=== PATIENT | male | born 1990 | race Caucasian/White ===

== ENCOUNTER 2019-01-29 11:22 | Inpatient (IN) ==
[2019-01-29] MEDS ORDERED: 0.9 % Sodium Chloride 1,000 ML IVC ONE ×2 (11:46→12:55)
[2019-01-29] MEDS ORDERED: *HR* LORazepam 2 MG/ML VIAL IVP ONE (11:54)
--- NOTE | 2019-01-29 11:56 | Emergency Department Note ---
Disposition Clinical Impression: Palpitations, Elevated troponin Disposition: Admitted As Inpatient Condition: Fair Referrals: NONE,PCP [Primary Care Provider] - Forms: ED Satisfaction Letter Time of Disposition: 13:25 General Adult HPI - General Chief complaint: ED Arrhythmia/Palpitations Stated complaint: CP, palpitations Time Seen by Provider: 01/29/19 11:44 Source: patient Limitations: no limitations Nursing Notes Reviewed: Yes Vital Signs Reviewed: Yes - History of Present Illness HPI Narrative: The patient presented emergency department with chief complaint of palpitations feeling like his heart is racing and feeling dizzy like he might pass out. Patient states that he was at work, he has had no food today but was drinking water he then took a 5 hour energy drink, and soon thereafter started feeling palpitations like his heart was racing and feeling intermittently lightheaded. He states it felt like his heart was pounding very quickly and he states that it made him feel very jittery and anxious as well. Patient states he has had this happen one time in the past, he reports that 3 months ago he was at [facility] wore a Holter monitor for 3 days had an echocardiogram and a tilt table test that was all normal. The patient states that he has had no recent fevers chills cough sputum production. No exertional symptoms. No leg pain or leg swelling no recent travels or immobilization no family history of young people with heart disease, no history of blood clots. He denies recent black or bloody stool denies headache neck pain jaw pain. Denies neck pain or neck stiffness. The patient denies any urinary changes or any other concerns. He does smoke cigarettes, drinks occasionally denies any other drug use. Pain Scale: 8 - Related Data Home Medications Medication Instructions Recorded Confirmed clonazePAM [Klonopin] 0.5 mg PO BID PRN 01/02/18 01/29/19 Allergies Allergy/AdvReac Type Severity Reaction Status Date / Time No Known Allergies Allergy Verified 01/29/19 11:31 All systems ED: reviewed and negative except as stated. Review of Systems: As Per HPI Past Medical History - Past Medical History Medical history: Reports: no medical history Psychiatric history: Reports: no psych history - Social History Smoking Status: Current every day smoker Smokeless Tobacco Status: No Alcohol use: Reports: occasionally Drug use: Reports: opiates, marijuana, other Physical Exam - General Limitations: no limitations General appearance: alert, in no apparent distress - Head Head exam: atraumatic, normocephalic - Eye Eye exam: Present: normal appearance, PERRL - ENT ENT exam: normal exam, normal oropharynx - Neck Neck exam: Present: normal inspection, full ROM - Chest Chest inspection: Present: normal inspection, symmetric chest wall rise - Respiratory Respiratory exam: Present: normal lung sounds bilaterally. Absent: respiratory distress - Cardiovascular Cardiovascular exam: Present: normal rhythm, tachycardia (Tachycardic on the monitor heart rate of 115, there is ectopy noted, with occasional PACs occasional PVCs on the monitor. No runs of abnormal beats noted on the monitor), normal heart sounds - Abdominal Exam Abdominal exam: Present: soft, Non-Tender - Extremities Exam Extremities exam: Present: normal inspection, full ROM, normal capillary refill. Absent: tenderness, pedal edema - Expanded Lower Extremity Exam Neurovascular/Tendon exam: Present: normal capillary refill - Back Exam Back exam: Present: normal inspection, full ROM - Neurological Exam Neurological exam: Present: alert, oriented X3, CN II-XII intact, reflexes normal. Absent: motor sensory deficit - Psychiatric Psychiatric exam: Present: normal affect, anxious - Skin Skin exam: Present: warm, dry, intact, normal color. Absent: rash, cyanosis Course Vital Signs Temperature 98.1 F 01/29/19 11:28 Pulse Rate 124 01/29/19 11:28 Respiratory Rate 16 01/29/19 11:28 Blood Pressure 128/67 01/29/19 11:28 O2 Sat by Pulse Oximetry 98 01/29/19 11:28 Temperature 98.1 F 01/29/19 11:28 Pulse Rate 77 01/29/19 14:00 Respiratory Rate 18 01/29/19 14:00 Blood Pressure 133/74 01/29/19 14:00 O2 Sat by Pulse Oximetry 100 01/29/19 14:00 Oxygen Delivery Oxygen Delivery Room Air Medical Decision Making - [facility] Narrative Medical decision making narrative: Patient had IV placed, he was given IV fluids, he appears anxious and is tachycardic after drinking a 5 hour energy, he was given 0.5 mg of IV Ativan. EKG as interpreted by myself demonstrated a borderline right bundle branch block pattern, when compared to prior EKG no significant change in this regard, however the heart rate is 145 appears to be sinus tachycardia with a P wave in front of every QRS complex, at the end of the EKG patient does have 2 ventricular escape beats in succession, no sustained ventricular abnormality. Basic laboratory studies were ordered. Chest x-ray was ordered. Chest x-ray as interpreted by radiology showed no acute findings. CBC was within acceptable limits. Urine drug screen was negative for any illicit substances. I contacted cardiology spoke with Dr. Valiente, who reviewed the patient's EKG with me, he states that this does not require admission to the hospital, he would encourage the patient to avoid taking 5 hour energy and caffeinated beverages, especially seeing as the patient has had recent echocardiogram tilt table test and Holter monitor, he states that there is no indication for admission to the hospital he reviewed the EKG with a heart rate of 145-2 beats of ventricular escape, states that this is not indicative of an NSVT, as it is only 2 beats and just represent ectopy. He would recommend a repeat Holter monitor as an outpatient through his primary care physician, or through cardiology at [facility] where he was already seen or he can be referred to his office, as long as all laboratory studies were within acceptable limits.. After fluids and Ativan, patient had resolution of his symptoms, resolution of his tachycardia heart rate is down to the 80s to 90s range, we will obtain a repeat EKG, Cardiac enzymes came back borderline at 0.06, For troponin He was given aspirin for this, he will be admitted to the hospital for observation. - Lab Data Result diagrams: 01/29/19 12:11 01/29/19 12:11 Lab Results 01/29/19 01/29/19 01/29/19 Range/Units 12:09 12:11 12:11 WBC 9.1 (4.3-11.1) K/mcL RBC 5.57 H (4.19-5.50) M/mcL Hgb 17.6 H (12.9-16.9) g/dL Hct 51.1 H (37.5-50.1) % MCV 91.7 (83.0-100.0) fL MCH 31.6 (28.0-33.3) pg MCHC 34.4 (31.6-35.5) g/dL RDW 13.3 (11.5-14.5) % Plt Count 202 (140-400) K/mcL MPV 9.8 (9.4-12.4) fL Immature Gran % 0.4 (0-4) % Seg Neutrophils % 79.5 % Lymphocytes % 13.3 % Monocytes % 6.3 % Eosinophils % 0.3 % Basophils % 0.2 % Neutrophils # 7.3 (1.6-8.9) K/mcL Lymphocytes # 1.2 (0.6-4.6) K/mcL Monocytes # 0.6 (0.0-1.3) K/mcL Eosinophils # 0.0 (0.0-0.6) K/mcL Basophils # 0.0 (0.0-0.2) K/mcL Sodium 139 (136-145) mEq/L Potassium 3.6 (3.5-5.1) mEq/L Chloride 104 (98-107) mEq/L Carbon Dioxide 20 L (23-29) mEq/L BUN 19 (6-20) mg/dL Creatinine 1.23 (0.70-1.30) mg/dL Est GFR ( Amer) > 60 (> 60) Est GFR (Non-Af Amer) > 60 (> 60) BUN/Creatinine Ratio 15 (6-26) Glucose 148 H (70-105) mg/dL Calculated Osmolality 293 (280-300) Calcium 9.6 (8.6-10.3) mg/dL Magnesium 1.7 (1.6-2.6) mg/dL Troponin I 0.06 H* (< 0.04) ng/mL Urine Opiates Screen Negative (Jtuzij=529) ng/mL Ur Barbiturates Screen Negative (Pbobmj=183) ng/mL Ur Phencyclidine Scrn Negative (Cutoff=25) ng/mL Ur Amphetamines Screen Negative (Rzvxlg=1089) ng/mL U Benzodiazepines Scrn Negative (Cslslx=127) ng/mL Urine Cocaine Screen Negative (Cutoff= 300) ng/mL U Marijuana (THC) Screen Negative (Cutoff = 50) ng/mL Ur Drug Screen Interp See Below
[2019-01-29 12:27] LABS: Basophils % 0.2 %; Eosinophils % 0.3 %; Hematocrit 51.1 % (37.5-50.1); Hemoglobin 17.6 g/dL (12.9-16.9); Immature Granulocytes % 0.4 % (0-4); Lymphocytes # 1.2 K/mcL (0.6-4.6); Lymphocytes % 13.3 %; Mean Corpuscular HGB Conc 34.4 g/dL (31.6-35.5); Mean Corpuscular Hemoglobin 31.6 pg (28.0-33.3); Mean Corpuscular Volume 91.7 fL (83.0-100.0); Mean Platelet Volume 9.8 fL (9.4-12.4); Monocytes # 0.6 K/mcL (0.0-1.3); Monocytes % 6.3 %; Neutrophils # 7.3 K/mcL (1.6-8.9); Platelet Count 202 K/mcL (140-400); Red Blood Count 5.57 M/mcL (4.19-5.50); Red Cell Distribution Width 13.3 % (11.5-14.5); Segmented Neutrophils % 79.5 %; White Blood Count 9.1 K/mcL (4.3-11.1)
[2019-01-29 12:42] LABS: Amphetamine Screen,Urine Negative ng/mL (Cutoff=1000); Barbiturate Screen,Urine Negative ng/mL (Cutoff=200); Benzodiazepines Screen,Urine Negative ng/mL (Cutoff=200); Cannabinoid Screen,Urine Negative ng/mL (Cutoff = 50); Cocaine Screen,Urine Negative ng/mL (Cutoff= 300); Opiate Screen,Urine Negative ng/mL (Cutoff=300); Phencyclidine Screen,Urine Negative ng/mL (Cutoff=25)
[2019-01-29 12:58] LABS: Troponin I 0.06 ng/mL (< 0.04)
[2019-01-29] MEDS ORDERED: Aspirin 325 MG TABLET PO ONE (12:59)
[2019-01-29 13:08] LABS: BUN/Creatinine Ratio 15 (6-26); Blood Urea Nitrogen 19 mg/dL (6-20); Calcium 9.6 mg/dL (8.6-10.3); Carbon Dioxide 20 mEq/L (23-29); Chloride 104 mEq/L (98-107); Glucose 148 mg/dL (70-105); Magnesium 1.7 mg/dL (1.6-2.6); Osmolality,Calculated 293 (280-300); Potassium 3.6 mEq/L (3.5-5.1); Sodium 139 mEq/L (136-145); eGFR For African Americans > 60 (> 60); eGFR For Non-African Americans > 60 (> 60)
--- NOTE | 2019-01-29 14:33 | Internal Med History&Physical ---
Date of Encounter: 01/30/19 Time of Encounter: 14:33 Internal Medicine - H&P: HPI History of present illness: Mr. Hope is a 28 year old male presented emergency department with chief complaint of palpitations she is admitted with dizziness and feeling as if he about the pass out. The patient stated that he had a 5 hours during this morning and went to work while work, while working outside he felt suddenly that his heart is racing and became dizzy. the patient stated that 3 months ago he had a similar episode after he consumed several servings of 5 hours drinks in the same day. He was evaluated and [facility] and wore a Holter monitor for 3 days had an echocardiogram and a tilt table test that was all normal. the patient denied chest pain, orthopnea, paroxysmal nocturnal dyspnea, progressive worsening of lower extremity edema, recent travel, history of blood clot. He w as evaluated by the ER staff and his laboratory that there was evidence for mildly elevated troponin so he was admitted for further evaluation and management. Past Med Surg Social Fam HX - Past Medical History Medical history: no medical history Additional medical history: pain med abuse Psychiatric history: no psych history - Social History Smoking Status: Current every day smoker Smokeless Tobacco Status: No Alcohol use: occasionally Drug use: opiates, marijuana, other - Family History Mother Hx Family Endocrine Disorder: Yes (DM) Father Hx Family Cardiac Disorders: Yes Internal Medicine - H&P: Meds No Known Home Drugs 01/29/19 [History] Allergy/AdvReac Type Severity Reaction Status Date / Time No Known Allergies Allergy Verified 01/29/19 20:11 All Systems PM: A 10-system review of systems was performed and is negative for pertinent findings except as documented above in the HPI. - Constitutional Vitals: Temp Pulse Resp BP Pulse Ox 98.1 F 77 18 133/74 100 01/29/19 11:28 01/29/19 14:00 01/29/19 14:00 01/29/19 14:00 01/29/19 14:00 General appearance: Present: A&O X 3 - Head Head exam: Present: atraumatic, normocephalic - Neck Neck exam general surgery: Present: supple, trachea midline. Absent: lymphadenopathy - Respiratory Respiratory exam: Present: CTAB. Absent: accessory muscle use, rales, rhonchi, wheezes - Cardiovascular Cardiovascular exam: Present: RRR, +S1, +S2. Absent: diastolic murmur, gallop, rubs, systolic murmur - GI/Abdominal GI/Abdominal exam: Present: normal bowel sounds, soft, no peritoneal signs. Absent: distended, tenderness - Extremities Exam Extremities exam: Present: warm, radial pulses palpable and symmetrical. Absent: calf tenderness, cyanotic, pedal edema Internal Med - H&P Results - Labs CBC & Chem 7: 01/30/19 00:52 01/30/19 00:52 Labs: Short CBC 01/29/19 Range/Units 12:11 WBC 9.1 (4.3-11.1) K/mcL Hgb 17.6 H (12.9-16.9) g/dL Hct 51.1 H (37.5-50.1) % Plt Count 202 (140-400) K/mcL Neutrophils # 7.3 (1.6-8.9) K/mcL BMP 01/29/19 12:11 Sodium 139 Potassium 3.6 Chloride 104 Carbon Dioxide 20 L BUN 19 Creatinine 1.23 Glucose 148 H Calcium 9.6 Cardiac Enzymes 01/29/19 Range/Units 12:11 Troponin I 0.06 H* (< 0.04) ng/mL - Impressions ITS Impressions Chest X-Ray 01/29/19 11:46 IMPRESSION: No acute cardiopulmonary process. D/ / Junior Colon MD / Junior Colon MD Interpreting Provider: Junior Colon MD - Assessment and Plan (1) Palpitations Current Visit: Yes Status: Acute Assessment and plan: We admit patient to telemetry unit for observation and monitoring, will repeat 2 D echo, trend cardiac enzymes. (2) Elevated troponin Current Visit: Yes Status: Acute Assessment and plan: We will place patient on telemetry, trend cardiac enzymes (3) DVT prophylaxis Current Visit: Yes Status: Acute Assessment and plan: The patient is ambulatory - Time Spent With Patient Total time spent is greater than 50% in coordination of care (as documented) at patient's floor/unit and/or counseling patient:
[2019-01-29] MEDS: Nicotine 14 MG PATCH.TD24 TD SCH (18:11)
[2019-01-29] MEDS ORDERED: Acetaminophen 325 MG TABLET PO PRN (18:26)
[2019-01-29] MEDS ORDERED: Ondansetron 4 MG/2 ML VIAL IVP PRN (18:26)
[2019-01-29] MEDS ORDERED: *HR* HYDROcodone/Acet 5/325 mg TABLET PO PRN (18:26)
[2019-01-29] MEDS ORDERED: Naloxone 0.4 MG/ML INJ IVP PRN (18:26)
[2019-01-29] MEDS: clonazePAM 0.5 MG TABLET PO PRN (22:20)
[2019-01-29] MEDS: 0.9 % Sodium Chloride 1,000 ML IVC SCH (22:22)
[2019-01-29] MEDS ORDERED: Perflutren Lipid Microsphere 1.3 ML in 0.9 % Sodium Chloride 8.7 ML IVP ONE (22:47)
[2019-01-30 01:57] LABS: Basophils % 0.2 %; Eosinophils # 0.1 K/mcL (0.0-0.6); Eosinophils % 0.7 %; Hematocrit 45.5 % (37.5-50.1); Immature Granulocytes % 0.2 % (0-4); Lymphocytes % 24.2 %; Mean Corpuscular HGB Conc 33.4 g/dL (31.6-35.5); Mean Corpuscular Volume 92.9 fL (83.0-100.0); Monocytes # 0.8 K/mcL (0.0-1.3); Monocytes % 9.1 %; Neutrophils # 5.5 K/mcL (1.6-8.9); Platelet Count 187 K/mcL (140-400); Red Cell Distribution Width 13.5 % (11.5-14.5); Segmented Neutrophils % 65.6 %; White Blood Count 8.4 K/mcL (4.3-11.1)
[2019-01-30 02:06] LABS: Alanine Aminotransferase 14 Units/L (7-52); Albumin/Globulin Ratio 1.9 (1.1-2.2); Alkaline Phosphatase 62 Units/L (34-104); Aspartate Amino Transferase 19 Units/L (13-39); BUN/Creatinine Ratio 13 (6-26); Bilirubin,Total 0.5 mg/dL (0.3-1.0); Blood Urea Nitrogen 14 mg/dL (6-20); Calcium 8.5 mg/dL (8.6-10.3); Carbon Dioxide 24 mEq/L (23-29); Chloride 107 mEq/L (98-107); Chol/HDL Ratio 2.5 (0-4.9); Cholesterol 114 mg/dL (< 200); Globulin 2.1 g/dL (2.4-3.5); Glucose 87 mg/dL (70-105); HDL Cholesterol 45 mg/dL (40-59); INR 1.1; LDL Cholesterol,Calculated 50 mg/dL (0-99); Osmolality,Calculated 286 (280-300); Phosphorous 3.1 mg/dL (2.7-4.5); Potassium 3.5 mEq/L (3.5-5.1); Prothrombin Time 12.2 Seconds (9.4-12.1); Sodium 138 mEq/L (136-145); Total Protein 6.1 g/dL (6.4-8.9); Triglycerides 96 mg/dL (< 150); eGFR For African Americans > 60 (> 60); eGFR For Non-African Americans > 60 (> 60)
[2019-01-30 02:08] LABS: Activated Partial Thrombo Time 31.1 Seconds (26.0-36.0)
[2019-01-30 02:11] LABS: Hemoglobin 15.2 g/dL (12.9-16.9)
[2019-01-30] MEDS ORDERED: *HR* Heparin 5,000 UNIT/ML VIAL IVP ONE (04:25)
[2019-01-30] MEDS ORDERED: *HR* Heparin 5,000 UNIT/ML VIAL IVP PRN ×2 (04:25)
--- NOTE | 2019-01-30 04:31 | Event Note ---
Date of Encounter: 01/30/19 Time of Encounter: 02:17 Alerted by patient's nurse NEVILLE Amos the patient's troponin was now 0.45, up from 0.25 and 0.06. Patient denies chest pain or shortness of breath, however patient was admitted with tachycardia, palpitations, and dizziness. Echocardiogram ordered and completed and awaiting read. Additional troponin ordered. Patient placed on heparin gtt. Consider Cardiology consult based on current increasing troponins and Echocardiogram results. Nurse instructed to continue monitoring the pt. very closely and alert me immediately of any adverse changes.
[2019-01-30] MEDS: Heparin 25,000 UNIT/250 ML D5W 25,000 UNIT/250 ML IV.SOLN IVC SCH (05:18)
[2019-01-30 06:38] LABS: Hematocrit 47.7 % (37.5-50.1); Hemoglobin 15.8 g/dL (12.9-16.9); Mean Corpuscular HGB Conc 33.1 g/dL (31.6-35.5); Mean Corpuscular Hemoglobin 31.3 pg (28.0-33.3); Mean Corpuscular Volume 94.6 fL (83.0-100.0); Platelet Count 190 K/mcL (140-400); Red Blood Count 5.04 M/mcL (4.19-5.50); Red Cell Distribution Width 13.5 % (11.5-14.5); White Blood Count 7.9 K/mcL (4.3-11.1)
[2019-01-30 06:46] LABS: Heparin anti-factor XA UFH 0.02 IU/mL (0.30-0.70); Prothrombin Time 11.7 Seconds (9.4-12.1)
[2019-01-30] MEDS: Nicotine 14 MG PATCH.TD24 TD SCH (09:20)
[2019-01-30] MEDS: clonazePAM 0.5 MG TABLET PO PRN ×2 (09:20→18:49)
[2019-01-30] MEDS: 0.9 % Sodium Chloride 1,000 ML IVC SCH ×2 (09:22→17:32)
--- NOTE | 2019-01-30 09:36 | Electrocardiograph Report ---
[place] [id number] Test Date: 2019-01-29 Pat Name: Efrain Hope Department: EXAM15 Room: 3B48 Gender: M Grant Specialist: : 1990 Requested By: Wm Kelly Order Number: [id number] Reading MD: Carlos Clarke Measurements Intervals [place] Rate: 113 P: 63 IA: 119 QRS: -22 QRSD: 109 T: 56 QT: 345 QTc: 473 Interpretive Statements Sinus tachycardia Borderline left axis deviation RSR' in V1 or V2, probably normal variant Electronically Signed On 01-30-2019 9:35:18 EDT by Carlos Clarke
--- NOTE | 2019-01-30 09:37 | Electrocardiograph Report ---
[address] [address] Test Date: 2019-01-29 Pat Name: Efrain Hope Department: 104 Room: 3B48 Gender: M Tobacco Classer: Gil : 1990 Requested By: Lobito Campbell Order Number: [id number] Reading MD: Carlos Clarke Measurements Intervals [place] Rate: 145 P: 65 [place]: 122 QRS: 4 QRSD: 93 T: 64 QT: 283 QTc: 366 Interpretive Statements SINUS TACHYCARDIA WITH OCCASIONAL VENTRICULAR PREMATURE COMPLEXES Incomplete right bundle branch block ABNORMAL RHYTHM ECG Electronically Signed On 01-30-2019 9:36:09 EDT by Carlos Clarke
--- NOTE | 2019-01-30 13:32 | Cardiology Consult Note ---
<Trenton Rodriguez - Last Filed: 01/30/19 15:04> Date of Encounter: 01/30/19 Time of Encounter: 13:30 Assessment and Plan (1) Tachycardia Current Visit: Yes Status: Acute Patient seen to have sinus tachycardia with HR up to 145 bpm. May be secondary to energy drinks. H/o tachycardia in the past. Patient should refrain from using energy drinks. Agree with IV hydration. (2) Elevated troponin Current Visit: Yes Status: Acute Troponin elevation up to 1.5 of unclear significance. Possible demand ischemia due to SVT. TTE Shows preserved EF and no WMA. Pt reported left arm pain. Cardiac risk factors include tobacco abuse. Continue trending troponin. Heparin gtt for 24-48 hours. Will discuss further ischemic evaluation with Dr. Clarke. Discussion w patient/family: The assessment and plan as outlined above was discussed with the patient and/or family members who expressed understanding and agreement. All questions were answered. Thank you for involving us in the care of your patient. Please call with any questions. History of Present Illness Consult date: 01/30/19 Requesting physician: Caryn Vazquez Consult reason: elevated troponin Chief complaint: Palpitations, left arm pain and tingling History of present illness: Mr. Hope is a 28 year old male with a past medical history significant for vitamin B-12 deficiency who presents with a complain of palpitations, left arm pain, and bilateral tingling in his hands. He states his symptoms started approximately 3 hours after drinking a five-hour energy drink. He reports similar symptoms in the past. His previously evaluated at the [facility] and underwent echocardiogram, Holter monitor, and tilt table test. No abnormal findings were found on work-up. He denies excessive use of energy drinks. He reports a history of drinking a lot of energy drinks. He quit drinking then secondary to increased palpitations and anxiety. EKG completed in the ED showed sinus tachycardia with a heart rate of 145 bpm and couplet PVC. Troponin also found to be elevated up to 1.37. Patient denies excessive alcohol or drug use. Past Med Surg Social Fam HX - Past Medical History Medical history: no medical history Additional medical history: pain med abuse Psychiatric history: no psych history - Past Surgical History Surgical History: no surgical history - Social History Smoking Status: Current every day smoker Packs per day: 1 Smokeless Tobacco Status: No Alcohol use: occasionally Drug use: opiates, marijuana, other - Family History Mother Hx Family Endocrine Disorder: Yes (DM) Father Hx Family Cardiac Disorders: Yes (60 yrs old) Medications and Allergies No Known Home Drugs 01/29/19 [History] Allergy/AdvReac Type Severity Reaction Status Date / Time No Known Allergies Allergy Verified 01/29/19 20:11 All Systems Review: The remainder of the systems were reviewed and are negative Physical Examination Vital Signs, Last 4 Hours Temp Pulse Resp BP Pulse Ox 01/30/19 11:58 98.8 F 79 14 100/66 98 General: Conversant, No Apparent Distress HEENT: Atraumatic, Normocephaly, Mucus Membranes Moist Neck: No JVD, Normal carotid pulses Cardiac: Reg Rate and Rhythm, Normal S1 and S2, No Murmur Lungs: Normal Breath Sounds, No Wheeze, Rales, Rhonchi Neuro: Alert and responsive, No focal deficits noted Abdomen: Soft, Non-Tender Skin: No rashes noted on visualized skin Musculoskeletal: No Chest Wall Tenderness Extremities: No Clubbing, No Cyanosis, No Edema, Normal Pulses Results 01/30/19 05:17 01/30/19 00:52 Lab Results 01/29/19 01/30/19 01/30/19 21:18 00:52 00:52 WBC 8.4 Hgb 15.2 D Hct 45.5 Plt Count 187 INR APTT Sodium Potassium Chloride Carbon Dioxide BUN Creatinine Glucose Calcium Magnesium Total Bilirubin AST ALT Alkaline Phosphatase Troponin I 0.25 H* 0.45 H* 01/30/19 01/30/19 01/30/19 00:52 00:52 05:17 WBC Hgb Hct Plt Count INR 1.1 APTT 31.1 Sodium 138 Potassium 3.5 Chloride 107 Carbon Dioxide 24 BUN 14 Creatinine 1.08 Glucose 87 Calcium 8.5 L Magnesium 2.0 Total Bilirubin 0.5 AST 19 ALT 14 Alkaline Phosphatase 62 Troponin I 1.37 H* 01/30/19 01/30/19 05:17 05:17 WBC 7.9 Hgb 15.8 Hct 47.7 Plt Count 190 INR 1.0 APTT Sodium Potassium Chloride Carbon Dioxide BUN Creatinine Glucose Calcium Magnesium Total Bilirubin AST ALT Alkaline Phosphatase Troponin I - Imaging and Cardiology Echo: report reviewed - EKG Interpretation EKG results cardiology: personally reviewed Consult Discharge Plan - Plan Referrals: NONE,PCP [Primary Care Provider] - <Carlos Clarke A - Last Filed: 01/31/19 14:26> Date of Encounter: 01/31/19 - Attending Attestation I have personally performed a face to face evaluation on this patient. I have reviewed and agree with the documented findings and care plan as documented by the SCHOOL CHILD CARE ATTENDANT. History and Exam by me shows: 71-year-old gentleman with history of opiate addiction (on therapy, but discontinued due to lack of access to express care) and tobacco abuse presented with SVT after taking energy drink, and found to have elevated troponin.. No known history of premature coronary artery disease in first-degree relative. AAOX3 in NAD at the bedside Hemodynamically stable Cardiopulmonary exam revealed S1, S2, no murmur; clear lungs Rhythm reviewed - sinus rhythm, no acute ST T changes Echo preserved EF, no significant valvular heart disease Impression/plan: Elevated troponin, possibly demand from SVTtrend troponin to peak. Continue IV heparin until troponin starts to come down. Urine toxicology negative for cocaine. Obtain HbA1c and fasting lipid profile. If troponin continue to uptrend, we will consider cardiac catheterization Carlos Marin MD FACC Assessment and Plan Discussion w patient/family: The assessment and plan as outlined above was discussed with the patient and/or family members who expressed understanding and agreement. All questions were answered. Thank you for involving us in the care of your patient. Please call with any questions. History of Present Illness History of present illness: Mr. Hope is a 28 year old male All Systems Review: The remainder of the systems were reviewed and are negative Physical Examination Vital Signs, Last 4 Hours Temp Pulse Resp BP Pulse Ox 01/31/19 11:44 98.4 F 89 16 121/77 96 Results 01/31/19 00:18 01/31/19 00:18 Lab Results 01/30/19 01/30/19 01/31/19 14:13 22:14 00:18 WBC 8.4 Hgb 15.5 Hct 46.8 Plt Count 184 Sodium Potassium Chloride Carbon Dioxide BUN Creatinine Glucose Calcium Troponin I 1.51 H* 2.30 H* TSH 1.030 01/31/19 01/31/19 01/31/19 00:18 04:13 10:19 WBC Hgb Hct Plt Count Sodium 137 Potassium 3.7 Chloride 106 Carbon Dioxide 23 BUN 17 Creatinine 1.12 Glucose 114 H Calcium 8.8 Troponin I Cancelled 2.73 H* 2.38 H* TSH
[2019-01-30 14:52] LABS: Troponin I 1.51 ng/mL (< 0.04)
[2019-01-30 15:45] LABS: Thyroid Stimulating Hormone 1.03 mcIU/mL (0.340-5.600)
--- NOTE | 2019-01-30 15:55 | Internal Med Progress Note ---
Hospitalist Progress Note - Encounter Date of Encounter: 01/30/19 Time of Encounter: 15:50 - Subjective Interval History: Mr. Hope is a 28 year old male with a known past medical history of former narcotic dependence, used to be on suboxone therapy up until Aug 2018, now he presented to emergency department with chief complaint of palpitations, anxiety attack and left hand numbness. He did mention as if he was about to pass out. patient stated that 3 months ago he had a similar episode after he consumed several servings of 5 hours drinks in the same day. He was evaluated and [facility] and wore a Holter monitor for 3 days had an echocardiogram and a tilt table test that was all normal. Patient did mention he still drinking 5 hour energy drinks, but cut down the quantity now - Exam Vitals: Temp Pulse Resp BP Pulse Ox 98.3 F 87 18 106/72 97 01/30/19 15:41 01/30/19 15:41 01/30/19 15:41 01/30/19 15:41 01/30/19 15:41 Exam: Gen: Alert, awake, Oriented to time,place and person Chest: Diminished breath sounds B/L, No wheezing, No crackles, No rales Heart: S1S2+ RRR No murmurs Abd: Soft, NT, BS +, No organomegaly Ext: No edema, pulses are palpable, No calf tenderness Neuro : No acute focal neuro deficits noticed Skin: No rash. - Assessment and Plan (1) DVT prophylaxis Current Visit: Yes Status: Acute (2) NSTEMI (non-ST elevated myocardial infarction) Current Visit: Yes Status: Acute Assessment and Plan: His elevated trop - multi factorial due to sinus tachycardia + Anxiety / Stress + Too much Caffeine with 5 hour energy drinks Trop are still trending high.. It peaked @ 1.52 now Cont trending on trop Reviewed 2 D Echo - LVEF 60-65%, Normal LV diastolic function cont heparin gtt for 48 hrs Card is on board appreciate Card recommendations (3) Sinus tachycardia Current Visit: Yes Status: Acute Assessment and Plan: resolved with IV hydration No need of BB If he develops tachycardia again.. consider Cardizem CD 120mg counseled to quit drinking 5 hour drinks (4) Narcotic dependence, in remission Current Visit: Yes Status: Acute (5) Palpitations Current Visit: Yes Status: Acute - Time Spent with Patient Total time spent is greater than 50% in coordination of care (as documented) at patient's floor/unit and/or counseling patient: Internal Medicine: Result - Labs CBC & Chem 7: 01/30/19 05:17 01/30/19 00:52 Labs: Short CBC 01/30/19 01/30/19 Range/Units 00:52 05:17 WBC 8.4 7.9 (4.3-11.1) K/mcL Hgb 15.2 D 15.8 (12.9-16.9) g/dL Hct 45.5 47.7 (37.5-50.1) % Plt Count 187 190 (140-400) K/mcL Neutrophils # 5.5 (1.6-8.9) K/mcL BMP 01/30/19 00:52 Sodium 138 Potassium 3.5 Chloride 107 Carbon Dioxide 24 BUN 14 Creatinine 1.08 Glucose 87 Calcium 8.5 L Cardiac Enzymes 01/29/19 01/30/19 01/30/19 Range/Units 21:18 00:52 05:17 Troponin I 0.25 H* 0.45 H* 1.37 H* (< 0.04) ng/mL 01/30/19 Range/Units 14:13 Troponin I 1.51 H* (< 0.04) ng/mL Liver Function 01/30/19 Range/Units 00:52 Total Bilirubin 0.5 (0.3-1.0) mg/dL AST 19 (13-39) Units/L ALT 14 (7-52) Units/L Alkaline Phosphatase 62 (34-104) Units/L Albumin 4.0 (3.5-5.7) g/dL - ABG Interpretation ABG results: PT/INR, D-dimer PT 11.7 Seconds (9.4-12.1) 01/30/19 05:17 - Impressions Impressions Echocardiogram 01/29/19 22:37 Impressions: LVEF 60-65%. Normal LV chamber size, wall thickness and function. Normal left ventricular diastolic function. Normal right ventricular structure and function. Unable to estimate RVSP due to lack of TR jet. No significant valvular dysfunction. Left Ventricular Wall Motion: Rest Echo Findings All wall segments showed normal motion. Findings: Study Quality * Technically adequate exam. ECG Findings * Normal sinus rhythm. Left Ventricle * LVEF 60-65%. * Normal LV chamber size, wall thickness and function. * Normal left ventricular diastolic function. Right Ventricle * Normal right ventricular structure and function. Left Atrium * Normal left atrial size. Right Atrium * Normal right atrial size. Interatrial Septum * Interatrial septum not well evaluated. Aortic Valve * Trileaflet aortic valve with normal function. * No aortic regurgitation. * No aortic stenosis. Mitral Valve * Normal mitral valve structure and function. * No mitral regurgitation. * No mitral stenosis. Tricuspid Valve * Normal tricuspid valve structure and function. * No tricuspid regurgitation. * Unable to estimate RVSP due to lack of TR jet. Pulmonic Valve * Normal pulmonic valve structure and function. * No pulmonic regurgitation. Aorta * Normally sized aortic root. Pericardium * The pericardium appears normal. IVC * Normal IVC dimensions and inspiratory collapse. Pulmonary Artery * Normal visualized portions of the main pulmonary artery. Consult Discharge Plan - Plan Referrals: NONE,PCP [Primary Care Provider] -
[2019-01-31 00:52] LABS: Hematocrit 46.8 % (37.5-50.1); Hemoglobin 15.5 g/dL (12.9-16.9); Mean Corpuscular HGB Conc 33.1 g/dL (31.6-35.5); Mean Corpuscular Hemoglobin 30.9 pg (28.0-33.3); Mean Corpuscular Volume 93.2 fL (83.0-100.0); Mean Platelet Volume 9.9 fL (9.4-12.4); Platelet Count 184 K/mcL (140-400); Red Blood Count 5.02 M/mcL (4.19-5.50); Red Cell Distribution Width 13.4 % (11.5-14.5); White Blood Count 8.4 K/mcL (4.3-11.1)
[2019-01-31 01:17] LABS: BUN/Creatinine Ratio 15 (6-26); Blood Urea Nitrogen 17 mg/dL (6-20); Calcium 8.8 mg/dL (8.6-10.3); Carbon Dioxide 23 mEq/L (23-29); Chloride 106 mEq/L (98-107); Glucose 114 mg/dL (70-105); Osmolality,Calculated 286 (280-300); Potassium 3.7 mEq/L (3.5-5.1); Sodium 137 mEq/L (136-145); eGFR For African Americans > 60 (> 60); eGFR For Non-African Americans > 60 (> 60)
[2019-01-31] MEDS: Heparin 25,000 UNIT/250 ML D5W 25,000 UNIT/250 ML IV.SOLN IVC SCH (03:57)
[2019-01-31] MEDS: 0.9 % Sodium Chloride 1,000 ML IVC SCH (03:58)
--- NOTE | 2019-01-31 06:19 | Event Note ---
Date of Encounter: 01/31/19 Time of Encounter: 05:23 Alerted by patient's nurse NEVILLE Amos that patient's troponin was now increased to 2.73, up from 2.30 on 01/30, up from 1.51 on 01/30, up from 0.06 on 01/29. Cardiology seems to attribute this to demand ischemia from SVT. Pt. continues to be on heparin gtt and continues to be asymptomatic. Pt. was seen previously at [facility] for similar symptoms approximately 3 months ago Holter monitor, echocardiogram, and tilt table test done with results all being normal. Nurse instructed to continue monitoring pt. very closely and alert me immediately of any new or adverse changes.
[2019-01-31] MEDS: clonazePAM 0.5 MG TABLET PO PRN ×2 (09:38→21:10)
[2019-01-31] MEDS: Nicotine 14 MG PATCH.TD24 TD SCH (09:38)
[2019-01-31 10:54] LABS: Estimated Average Glucose 114 mg/dl; Hemoglobin A1C 5.6 %
--- NOTE | 2019-01-31 12:06 | Cardiology Progress Note ---
Date of Encounter: 01/31/19 Time of Encounter: 11:00 Assessment and Plan (1) Elevated troponin Current Visit: Yes Status: Acute Troponin continues to uptrend, 2.73. Remains chest pain free. No ischemic ECG changes. Unclear significance. No further episodes of tachycardia noed. TTE Shows preserved EF and no WMA. Pt reported left arm pain prior to admission. Cardiac risk factors include tobacco abuse. A1C pending. Continue heparin gtt, add aspirin, statin, and BB. Discussed with Dr. Clarke, recommend C with possible PCI to r/o ischemic gabo ology. (2) Tachycardia Current Visit: Yes Status: Acute Patient seen to have sinus tachycardia with HR up to 145 bpm. May be secondary to energy drinks. H/o tachycardia in the past. Patient should refrain from using energy drinks. Agree with IV hydration. Discussion w patient/family: The assessment and plan as outlined above was discussed with the patient and/or family members who expressed understanding and agreement. All questions were answered. Thank you for involving us in the care of your patient. Please call with any questions. The patient will be discussed and reviewed with Dr. Clarke; changes to be made accordingly. Objective Vital Signs, Last 4 Hours Temp Pulse Resp BP Pulse Ox 01/31/19 11:44 98.4 F 89 16 121/77 96 Results 01/31/19 00:18 01/31/19 00:18 Lab Results 01/30/19 01/30/19 01/31/19 14:13 22:14 00:18 WBC 8.4 Hgb 15.5 Hct 46.8 Plt Count 184 Sodium Potassium Chloride Carbon Dioxide BUN Creatinine Glucose Calcium Troponin I 1.51 H* 2.30 H* TSH 1.030 01/31/19 01/31/19 01/31/19 00:18 04:13 10:19 WBC Hgb Hct Plt Count Sodium 137 Potassium 3.7 Chloride 106 Carbon Dioxide 23 BUN 17 Creatinine 1.12 Glucose 114 H Calcium 8.8 Troponin I Cancelled 2.73 H* 2.38 H* TSH Consult Discharge Plan - Plan Referrals: NONE,PCP [Primary Care Provider] -
--- NOTE | 2019-01-31 12:18 | Internal Med Progress Note ---
Hospitalist Progress Note - Encounter Date of Encounter: 01/31/19 Time of Encounter: 11:00 - Subjective Interval History: No acute events overnight. Denies any chest pain, palpitation, orthopnea, or leg swelling. No fever overnight - Exam Vitals: Temp Pulse Resp BP Pulse Ox 98.4 F 89 16 121/77 96 01/31/19 11:44 01/31/19 11:44 01/31/19 11:44 01/31/19 11:44 01/31/19 11:44 Exam: Gen: Alert, awake, Oriented to time,place and person Chest: Clear to auscultation bilaterally Heart: S1S2+ RRR No murmurs Abd: Soft, NT, BS +, No organomegaly Ext: No edema, pulses are palpable, No calf tenderness Neuro : No acute focal neuro deficits noticed - Assessment and Plan (1) Elevated troponin Current Visit: Yes Status: Acute Assessment and Plan: in the setting of sinus tachycardia continues to trend up to 2.73 this morning, no anginal symptoms Echocardiogram showed preserved EF and no wall motion abnormalities cardiology input appreciated, Aspirin, statin, beta sandra to be added and plan for [facility] currently on hep gtt, continue for 48-72 hours (2) Tachycardia Current Visit: Yes Status: Acute Assessment and Plan: Avoidance of caffeinated drinks emphasized bb added as above (3) Narcotic dependence, in remission Current Visit: Yes Status: Acute (4) DVT prophylaxis Current Visit: Yes Status: Acute Assessment and Plan: hep gtt - Time Spent with Patient Total time spent is greater than 50% in coordination of care (as documented) at patient's floor/unit and/or counseling patient: 25 - 35 minutes Plan of Care Discussed with: patient (discussed with cardiology) Internal Medicine: Result - Labs CBC & Chem 7: 01/31/19 00:18 01/31/19 00:18 Labs: Short CBC 01/31/19 Range/Units 00:18 WBC 8.4 (4.3-11.1) K/mcL Hgb 15.5 (12.9-16.9) g/dL Hct 46.8 (37.5-50.1) % Plt Count 184 (140-400) K/mcL BMP 01/31/19 00:18 Sodium 137 Potassium 3.7 Chloride 106 Carbon Dioxide 23 BUN 17 Creatinine 1.12 Glucose 114 H Calcium 8.8 Cardiac Enzymes 01/30/19 01/30/19 01/31/19 Range/Units 14:13 22:14 00:18 Troponin I 1.51 H* 2.30 H* Cancelled (< 0.04) ng/mL 01/31/19 01/31/19 Range/Units 04:13 10:19 Troponin I 2.73 H* 2.38 H* (< 0.04) ng/mL - ABG Interpretation ABG results: PT/INR, D-dimer PT 11.7 Seconds (9.4-12.1) 01/30/19 05:17 Consult Discharge Plan - Plan Referrals: NONE,PCP [Primary Care Provider] -
[2019-01-31] MEDS ORDERED: *HR* LORazepam 2 MG/ML VIAL IVP ONE (12:34)
[2019-01-31] MEDS: Aspirin 81 MG TAB.CHEW PO SCH (13:20)
[2019-02-01] MEDS: Heparin 25,000 UNIT/250 ML D5W 25,000 UNIT/250 ML IV.SOLN IVC SCH (06:22)
[2019-02-01] MEDS: clonazePAM 0.5 MG TABLET PO PRN ×2 (09:10→20:32)
[2019-02-01] MEDS: Aspirin 81 MG TAB.CHEW PO SCH (09:10)
--- NOTE | 2019-02-01 09:11 | Cardiology Progress Note ---
Date of Encounter: 02/01/19 Time of Encounter: 08:30 Assessment and Plan (1) Elevated troponin Current Visit: Yes Status: Acute Troponin continues to uptrend, 2.73. Remains chest pain free. No ischemic ECG changes. Unclear significance. Episode of ST yesterday afternoon around 5PM, patient reports "panic attack" TTE Shows preserved EF and no WMA. Pt reported left arm pain prior to admission. Cardiac risk factors include tobacco abuse. A1C pending. Continue heparin gtt, add aspirin, statin, and BB. Discussed with Dr. Clarke, recommend LHC with possible PCI to r/o ischemic etiology. NPO after MN (2) Tachycardia Current Visit: Yes Status: Acute Patient seen to have sinus tachycardia with HR up to 145 bpm. May be secondary to energy drinks. H/o tachycardia in the past. Patient should refrain from using energy drinks. Agree with IV hydration. Discussion w patient/family: The assessment and plan as outlined above was discussed with the patient and/or family members who expressed understanding and agreement. All questions were answered. Thank you for involving us in the care of your patient. Please call with any questions. The patient will be discussed and reviewed with Dr. Clarke; changes to be made accordingly. Subjective Principal diagnosis: NSTEMI Interval history: seen and examined. No complaints overnight. No chest pain reported. Objective Vital Signs, Last 4 Hours Temp Pulse Resp BP Pulse Ox 02/01/19 07:13 97.9 F 64 16 98/64 97 General: Conversant, No Apparent Distress HEENT: Atraumatic, Normocephaly, Mucus Membranes Moist Neck: No JVD, Normal carotid pulses Cardiac: Reg Rate and Rhythm, Normal S1 and S2, No Murmur Lungs: Normal Breath Sounds, No Wheeze, Rales, Rhonchi Neuro: Alert and responsive, No focal deficits noted Abdomen: Soft, Non-Tender Skin: No rashes noted on visualized skin Musculoskeletal: No Chest Wall Tenderness Extremities: No Clubbing, No Cyanosis, No Edema, Normal Pulses Results 01/31/19 00:18 01/31/19 00:18 Lab Results 01/31/19 01/31/19 10:19 16:14 Troponin I 2.38 H* 1.55 H* Active Medications Acetaminophen (Tylenol) 650 mg PO Q6HR PRN PRN Reason: Mild Pain/Fever Stop: 07/31/19 18:27 Hydrocodone Bitart/Acetaminophen ([place] 5-325 Mg) 1 tab PO Q6HR PRN PRN Reason: Moderate Pain Stop: 07/31/19 18:27 Aspirin (Aspirin) 81 mg PO DAILY FE Stop: 08/02/19 12:16 Last Admin: 02/01/19 09:10 Dose: 81 mg Documented by: Atorvastatin Calcium (Lipitor) 40 mg PO HS FE Stop: 08/02/19 21:01 Last Admin: 01/31/19 21:07 Dose: 40 mg Documented by: Calcium Carbonate (Tums) 1,000 mg PO Q4HR PRN; Protocol PRN Reason: Heartburn Stop: 08/01/19 00:32 Last Admin: 01/31/19 15:15 Dose: 1,000 mg Documented by: Clonazepam (Klonopin) 0.5 mg PO BID PRN PRN Reason: Anxiety Last Admin: 02/01/19 09:10 Dose: 0.5 mg Documented by: Heparin Sodium (Porcine) (Heparin) 4,000 unit IVP Q6HR PRN PRN Reason: SEE COMMENTS Stop: 08/01/19 04:26 Heparin Sodium (Porcine) (Heparin) 2,000 unit IVP Q6H PRN PRN Reason: SEE COMMENTS Stop: 08/01/19 04:26 Heparin Sodium/Dextrose (Heparin 25,000 Unit/250 Ml D5w) 25,000 unit in 250 mls @ 9.36 mls/hr IVC .Q24H FE; Protocol Stop: 08/01/19 04:31 Last Admin: 02/01/19 06:22 Dose: 12.05 unit/kg/hr, 9.4 mls/hr Documented by: Metoprolol Tartrate (Lopressor) 12.5 mg PO BID FE Stop: 08/02/19 21:01 Last Admin: 02/01/19 09:10 Dose: 12.5 mg Documented by: Naloxone HCl (Narcan) 0.4 mg IVP Q2MPRN PRN PRN Reason: SEE COMMENTS Stop: 07/31/19 18:27 Nicotine (Nicoderm) 14 mg TD DAILY FE; Protocol Stop: 07/31/19 17:31 Last Admin: 02/01/19 09:12 Dose: 14 mg Documented by: Ondansetron HCl (Zofran) 4 mg IVP Q8HR PRN PRN Reason: Nausea And Vomiting Stop: 07/31/19 18:27 - Imaging and Cardiology Echo: report reviewed Other Results: 12 hour tele: avg HR=[address], max 154 briefly. - EKG Interpretation EKG results cardiology: personally reviewed Consult Discharge Plan - Plan Referrals: NONE,PCP [Primary Care Provider] -
[2019-02-01] MEDS: Nicotine 14 MG PATCH.TD24 TD SCH (09:12)
--- NOTE | 2019-02-01 12:15 | Internal Med Progress Note ---
Hospitalist Progress Note - Encounter Date of Encounter: 02/01/19 Time of Encounter: 10:45 - Subjective Interval History: Had one episode of panic attack yesterday associated with sinus tachycardia, but otherwise remained chest pain-free. No fever overnight - Exam Vitals: Temp Pulse Resp BP Pulse Ox 98.3 F 69 16 104/69 97 02/01/19 11:16 02/01/19 11:16 02/01/19 11:16 02/01/19 11:16 02/01/19 11:16 Exam: Gen: Alert, awake, Oriented to time,place and person Chest: Clear to auscultation bilaterally Heart: S1S2+ RRR No murmurs Abd: Soft, NT, BS +, No organomegaly Ext: No edema, pulses are palpable, No calf tenderness Neuro : No acute focal neuro deficits noticed - Assessment and Plan (1) Elevated troponin Current Visit: Yes Status: Acute Assessment and Plan: in the setting of sinus tachycardia continues to trend up to 2.73 yesterday, downtrending since then. No anginal symptoms Echocardiogram showed preserved EF and no wall motion abnormalities lipid panel unremarkable, A1c 5.6 cardiology input appreciated, Aspirin, statin, beta sandra to be added and plan for [facility] tomorrow currently on hep gtt, continue for 48-72 hours (2) Tachycardia Current Visit: Yes Status: Acute Assessment and Plan: Avoidance of caffeinated drinks emphasized bb added as above (3) Narcotic dependence, in remission Current Visit: Yes Status: Acute (4) DVT prophylaxis Current Visit: Yes Status: Acute Assessment and Plan: hep gtt - Time Spent with Patient Total time spent is greater than 50% in coordination of care (as documented) at patient's floor/unit and/or counseling patient: less than 15 minutes Plan of Care Discussed with: patient Internal Medicine: Result - Labs CBC & Chem 7: 01/31/19 00:18 01/31/19 00:18 Labs: Cardiac Enzymes 01/31/19 Range/Units 16:14 Troponin I 1.55 H* (< 0.04) ng/mL - ABG Interpretation ABG results: PT/INR, D-dimer PT 11.7 Seconds (9.4-12.1) 01/30/19 05:17 Consult Discharge Plan - Plan Referrals: NONE,PCP [Primary Care Provider] -
[2019-02-01] MEDS ORDERED: *HR* LORazepam 2 MG/ML VIAL IVP ONE (14:01)
[2019-02-02 04:25] LABS: Basophils % 0.2 %; Eosinophils # 0.1 K/mcL (0.0-0.6); Eosinophils % 0.7 %; Hematocrit 50.4 % (37.5-50.1); Immature Granulocytes % 0.3 % (0-4); Lymphocytes # 2.5 K/mcL (0.6-4.6); Lymphocytes % 24.9 %; Mean Corpuscular HGB Conc 33.9 g/dL (31.6-35.5); Mean Corpuscular Hemoglobin 30.6 pg (28.0-33.3); Mean Corpuscular Volume 90.2 fL (83.0-100.0); Mean Platelet Volume 10.3 fL (9.4-12.4); Monocytes # 0.9 K/mcL (0.0-1.3); Monocytes % 8.4 %; Neutrophils # 6.6 K/mcL (1.6-8.9); Platelet Count 198 K/mcL (140-400); Red Blood Count 5.59 M/mcL (4.19-5.50); Red Cell Distribution Width 13.2 % (11.5-14.5); Segmented Neutrophils % 65.5 %; White Blood Count 10.1 K/mcL (4.3-11.1)
[2019-02-02 04:26] LABS: Hemoglobin 17.1 g/dL (12.9-16.9)
[2019-02-02 04:32] LABS: INR 1.1; Prothrombin Time 11.9 Seconds (9.4-12.1)
[2019-02-02 04:39] LABS: BUN/Creatinine Ratio 22 (6-26); Blood Urea Nitrogen 25 mg/dL (6-20); Calcium 9.5 mg/dL (8.6-10.3); Carbon Dioxide 25 mEq/L (23-29); Chloride 101 mEq/L (98-107); Glucose 99 mg/dL (70-105); Osmolality,Calculated 288 (280-300); Potassium 3.9 mEq/L (3.5-5.1); Sodium 137 mEq/L (136-145); eGFR For African Americans > 60 (> 60); eGFR For Non-African Americans > 60 (> 60)
[2019-02-02] MEDS: clonazePAM 0.5 MG TABLET PO PRN (08:49)
[2019-02-02] MEDS: Heparin 25,000 UNIT/250 ML D5W 25,000 UNIT/250 ML IV.SOLN IVC SCH (08:49)
[2019-02-02] MEDS: Aspirin 81 MG TAB.CHEW PO SCH (08:58)
[2019-02-02] MEDS: Nicotine 14 MG PATCH.TD24 TD SCH (11:13)
[2019-02-02] MEDS ORDERED: *HR* LORazepam 1 MG TABLET PO PRN (13:26)
--- NOTE | 2019-02-02 15:14 | Electrocardiograph Report ---
[place] [id number] Test Date: 2019-01-29 Pat Name: Efrain Hope Department: EXAM15 Room: 3B48 Gender: M [employer]: : 1990 Requested By: Garfield Smith Order Number: [id number] Reading MD: Louie Goldman Measurements Intervals Dixon Rate: 91 P: 64 NH: 134 QRS: -9 QRSD: 108 T: 25 QT: 378 QTc: 466 Interpretive Statements Sinus rhythm RSR' in V1 or V2 probably normal variant Electronically Signed On 02-02-2019 15:13:08 EDT by Louie Goldman
--- NOTE | 2019-02-02 16:07 | Internal Med Progress Note ---
Hospitalist Progress Note - Encounter Date of Encounter: 02/02/19 Time of Encounter: 11:45 - Subjective Interval History: Mr. Hope is a 28 year old male with a known past medical history of former narcotic dependence, used to be on suboxone therapy up until Aug 2018, now he presented to emergency department with chief complaint of palpitations, anxiety attack and left hand numbness. He did mention as if he was about to pass out. patient stated that 3 months ago he had a similar episode after he consumed several servings of 5 hours drinks in the same day. He was evaluated and [facility] and wore a Holter monitor for 3 days had an echocardiogram and a tilt table test that was all normal. Patient did mention he still drinking 5 hour energy drinks, but cut down the quantity now he was admitted in the hospital and placed on cardiac specialist. His serial troponin went up and peaked at 2.73.. So pt was continued on heparin gtt. He denied any CP. - Exam Vitals: Temp Pulse Resp BP Pulse Ox 98.2 F 88 15 97/67 100 02/02/19 15:21 02/02/19 15:21 02/02/19 15:21 02/02/19 15:21 02/02/19 15:21 Exam: Gen: Alert, awake, Oriented to time,place and person Chest: Clear to auscultation bilaterally Heart: S1S2+ RRR No murmurs Abd: Soft, NT, BS +, No organomegaly Ext: No edema, pulses are palpable, No calf tenderness Neuro : No acute focal neuro deficits noticed - Assessment and Plan (1) NSTEMI (non-ST elevated myocardial infarction) Current Visit: Yes Status: Acute Assessment and Plan: His elevated trop - multi factorial due to sinus tachycardia + Too much Caffeine with 5 hour energy drinks Trop peaked @ 2.73 and started trending down Reviewed 2 D Echo - LVEF 60-65%, Normal LV diastolic function Cont heparin gtt Card is on board Started on ASA, Statin and BB Scheduled for [facility] today (2) Sinus tachycardia Current Visit: Yes Status: Acute Assessment and Plan: resolved with IV hydration on Metoprolol (3) Narcotic dependence, in remission Current Visit: Yes Status: Acute (4) DVT prophylaxis Current Visit: Yes Status: Acute Assessment and Plan: hep gtt - Time Spent with Patient Total time spent is greater than 50% in coordination of care (as documented) at patient's floor/unit and/or counseling patient: Internal Medicine: Result - Labs CBC & Chem 7: 02/02/19 03:03 02/02/19 03:03 Labs: Short CBC 02/02/19 Range/Units 03:03 WBC 10.1 (4.3-11.1) K/mcL Hgb 17.1 H D (12.9-16.9) g/dL Hct 50.4 H (37.5-50.1) % Plt Count 198 (140-400) K/mcL Neutrophils # 6.6 (1.6-8.9) K/mcL BMP 02/02/19 03:03 Sodium 137 Potassium 3.9 Chloride 101 Carbon Dioxide 25 BUN 25 H Creatinine 1.13 Glucose 99 Calcium 9.5 - ABG Interpretation ABG results: PT/INR, D-dimer PT 11.9 Seconds (9.4-12.1) 02/02/19 03:03 Consult Discharge Plan - Plan Referrals: NONE,PCP [Primary Care Provider] -
[2019-02-02] MEDS ORDERED: 0.9 % Sodium Chloride 1,000 ML ONE ×3 (16:36→17:03)
[2019-02-02] MEDS ORDERED: Heparin 1,000 UNITS/500 mL 500 ML ONE (17:01)
[2019-02-02] MEDS ORDERED: Nitroglycerin 1,000 MCG/10 ML VIAL IV ONE (17:02)
[2019-02-02] MEDS ORDERED: ISOVUE-370 200 ML INFUS..BTL ONE (17:02)
[2019-02-02] MEDS ORDERED: *HR* Heparin 10,000 UNIT/10 ML VIAL ONE (17:02)
[2019-02-02] MEDS ORDERED: *HR* FentaNYL (PF) 100 MCG/2 ML VIAL ONE (17:09)
[2019-02-02] MEDS ORDERED: *HR* Midazolam HCl 2 MG/2 ML VIAL ONE (17:09)
[2019-02-02] MEDS ORDERED: Tirofiban 12.5 MG/250ML 12.5 MG/250 ML BAG ONE (17:43)
[2019-02-02] MEDS ORDERED: *HR* Ticagrelor 90 MG TABLET ONE (17:50)
--- NOTE | 2019-02-02 17:51 | Pre-Sedation Evaluation ---
Pre-sedation evaluation - Pre-sedation checklist Date of procedure: 02/02/19 Procedure: Left Heart Catherization Recent Vitals: Last Vital Signs Temp 98.2 F 02/02/19 15:21 Pulse 88 02/02/19 15:21 Resp 15 02/02/19 15:21 BP 97/67 02/02/19 15:21 Pulse Ox 100 02/02/19 15:21 H&P (including ROS) documented in medical record: Yes Previous reaction to sedatives/anesthetics: No Dietary Status: NPO after Midnight Dentition: full dentition ASA Classification *see protocol: CLASS II-Mild systemic disease Cardiac Registry (Cardio Only) - Functional Capacity Functional Capacity: >=4 METS with symptoms - Clincal Frailty Scale Clinical Frailty Scale: Well
[2019-02-02] MEDS ORDERED: Tirofiban 12.5 MG/250ML 12.5 MG/250 ML BAG IVC SCH (18:00)
--- NOTE | 2019-02-02 18:04 | Invasive Diagnostic Lab Proc ---
Name: Efrain Hope Date of Study: 02/02/2019 Date: 1990 Ht: 66.9in Medical Record#: [id number] Age: 28 Wt: 171.96lb Gender: Male BSA: 1.89 Order #: [id number] BMI: 26.99 Physicians Procedure Physician: Eros Valiente MD Referring MD: Referring MD: Staff Name Position Time In Wanda Amaro RN Monitor 05:13 PM Hector Antoine RN Lye Boiler 05:13 PM Ashely Belle RT (R) Scrub 05:13 PM Lenore Bishop RT (R) Scrub 05:14 PM Indications Indication Non-Stemi Procedures Performed Procedure L HRT ARTERY/VENTRICLE ANGIO Pre-Procedure Checklist Informed consent is complete signed and on chart. H&P is on chart. ID band is on and ID verified with patient. Patient NPO for procedure The procedure was described for the patient and questions were answered. ECG is on chart. Plan of Care Patient will tolerate the procedure without complications. Adequate level of comfort will be maintained. Hemodynamics will remain stable Patient will recover from procedure without complications. Respiratory function will be maintained. Cardiac rhythm will remain stable. Patient temperature will be maintained. Patient and/or family have verbalized understanding of the procedure. Patient Education Chief Complaint/Reason for Test: Cardiac Cath Developmental Category: Adult (18-64 years) Developmentally Appropriate for Age: Yes Learning Barriers: None Education Needs: Procedure Education Method: Verbal Information Taught: Cardiac Cath Educational Evaluation: Able to repeat information Intravenous Access Time IV Size Location DC'd Fluid/Drip Rate Units RN 08:42 AM 18g 1 08/29" Patent On Arrival Rt Antecubital 0.9NaCl 50 ml/hr Wanda Amaro RN Allergies No Known Allergies Vital Signs Time BP (mmHg) HR (bpm) O2 Sat. RR (bpm) LOC 05:14 PM / % 5 = Fully awake and oriented or at pre-proc level 05:14 PM / % 5 = Fully awake and oriented or at pre-proc level 05:29 PM / % 4 = Oriented but drowsy 05:18 PM 107 / 76 105 100 % 05:22 PM 108 / 61 103 100 % 11 05:27 PM 112 / 68 94 100 % 7 05:31 PM 75 / 44 72 100 % 18 05:32 PM 75 / 43 84 100 % 19 05:33 PM 80 / 47 86 100 % 17 05:37 PM 92 / 53 91 98 % 16 05:42 PM 100 / 61 95 99 % 14 05:47 PM 101 / 62 96 100 % 26 05:52 PM 98 / 65 104 100 % 18 Procedural Medications Time Medication Dose Units Method Given By 05:14 PM Oxygen 2 L/min nasal cannula Hector Antoine RN 05:18 PM Versed 1 mg Intravenous Hector Antoine RN 05:18 PM Fentanyl 50 mcg Intravenous Hector Antoine RN 05:26 PM Lidocaine 2% 19 ml Subcutaneous Eros Valiente MD 05:33 PM 0.9NaCl 999 ml/hr Intravenous Hector Antoine RN 05:45 PM Aggrastat Bolus: 37.5 ml Intravenous Hector Antoine RN 05:46 PM Aggrastat 12.5mg/250ml 13.5 ml/hr Intravenous Hector Antoine RN 05:51 PM Brilinta 180 mg Orally Hector Antoine RN ASA Classification: CLASS II- Mild systemic disease (i.e. well-controlled diabetes, hypertension, asthma, cigarette smoking) Cathryn Score Preprocedure Postprocedure Activity 2- Moves 4 extremities sustained head lift Activity 2- Moves 4 extremities sustained head lift Circulation 2- SBP +/= 20 points of pre-anesthetic level Circulation 2- SBP +/= 20 points of pre-anesthetic level Consciousness 2- Awake and alert oriented x 3 Consciousness 2- Awake and alert oriented x 3 O2 Saturation 2- Able to maintain O2 satruation of 92% on room air O2 Saturation 2- Able to maintain O2 satruation of 92% on room air Respiratory 2- Able to deep breathe and cough well Respiratory 2- Able to deep breathe and cough well Total Score 10 Total Score 10 Contrast Agent: Isovue Diagnostic Contrast: 68 ml Total Contrast: 68 ml Fluoro Dose: 19 mGy Procedure Log Time Note Enter By 05:02 PM CathStat 05:13 PM 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 well-controlled diabetes, hypertension, asthma, cigarette smoking) mm 05:14 PM Meet and greet completed 05:14 PM Sign in performed according to hospital policy. Informed consent was obtained. 05:14 PM Procedure start 17:14 mm 05:14 PM Hair removed from procedure site in procedure lab using clippers. Bilateral groin prepped with Chloraprep by Hector Antoine RN, then patient was draped. Skin intact. mm:14 PM Time: 17:14 Patient comfortable and pain free: Yes :14 PM Time: 17:14LOC: 5 = Fully awake and oriented or at pre-proc level shreyas 05:14 PM Time: 17:14 Oxygen on at 2 L/min per nasal cann[facility] PM Vitals capture started with the following parameters, Patient=Adult, Interval=5 min, Initial Rxdncbqc=229 mmHg, Deflation Rate=5 mmHg, Cuff placed on Left Arm 05:18 PM GR=438 bpm, LVDO=433/76 mmhg, OgO2=009.0 % 05:18 PM Time: 17:18 Versed 1 mg Intravenous Given by [facility] 05:[facility] PM Time: 17:18 Fentanyl 50 mcg Intravenous Given by Hector Antoine RN lidiashreyas 05:22 PM FY=387 bpm, MVUA=500/61 mmhg, YhQ2=555.0 %, Resp=11 B/min 05:22 PM Recorded ECG: HV=734 Condition=Condition 1 05:22 PM Pressure channel 1 zero failed. 05:23 PM Pressure channel 1 zeroed. 05:25 PM Time out was performed according to hospital policy. Conscious sedation and anesthesia was achieved (see medication log with in this report above) oumm 05:26 PM Time: 17:26 19 ml Lidocaine 2% to right groin Subcutaneous Given by Eros Valiente MD lidiashreyas 05:27 PM Micro-Introducer Kit utilized for sheath placement 05:27 PM HR=94 bpm, KEEX=295/68 mmhg, MfE6=736.0 %, Resp=7 B/min 05:28 PM Access obtained by percutaneous puncture. 6Fr 10cm Terumo [place] sheath placed in right Femoral artery. [id number] mm 05:29 PM 0.035 145cm Navilyst 3mmJ wire [id number] 05:29 PM 5Fr FR 4 catheter inserted over the wire [facility] 05:29 PM Time: 17:14 Patient comfortable and pain free: Yes 05:29 PM Time: 17:14LOC: 5 = Fully awake and oriented or at pre-proc level 05:29 PM Pressure channel 1 zeroed. 05:30 PM wire removed 05:30 PM NIBP STAT measurement started. 05:31 PM HR=72 bpm, NIBP=75/44 mmhg, CmV0=512.0 %, Resp=18 B/min 05:31 PM RCA angiography performed in multiple views. 05:32 PM Recorded Pressure: Ao, HR=69, Condition=Condition 1 (Aorta) Ao 78/69/73 05:32 PM Recorded Pressure: Ao, HR=68, Condition=Condition 1 (Aorta) Ao 66/49/57 05:32 PM HR=84 bpm, NIBP=75/43 mmhg, OhL6=554.0 %, Resp=19 B/min 05:33 PM NIBP STAT measurement started. 05:33 PM pt diaphoretic 05:33 PM Time: 17:33 0.9NaCl 999 ml/hr Intravenous Given by Hector Antoine RN shreyas 05:33 PM Catheter removed 05:33 PM HR=86 bpm, NIBP=80/47 mmhg, VgP6=447.0 %, Resp=17 B/min 05:35 PM 5Fr FL 4 catheter inserted over the wire [facility] shreyas 05:36 PM Recorded Pressure: Ao, HR=84, Condition=Condition 1 (Aorta) Ao 77/60/68 05:36 PM LCA angiography performed in multiple views. 05:36 PM NIBP STAT measurement started. 05:37 PM HR=91 bpm, NIBP=92/53 mmhg, SpO2=98.0 %, Resp=16 B/min 05:37 PM Catheter removed 05:37 PM 5Fr Pigtail catheter inserted over the wire [facility] 05:38 PM Catheter crossed the aortic valve and was selectively placed in the left ventricle. Pressures recorded on pullback for left heart catheterization. oumm 05:39 PM Recorded Pressure: LV, LF=940, Condition=Condition 1 (Left Ventricle) LV 117/-4/16 05:40 PM Recorded Pressure: LV, Ao, BP=719, Condition=Condition 1 (Left Ventricle) LV 115/-6/15, (Aorta) Ao 105/60/77 05:40 PM Catheter removed ou 05:40 PM Recorded ECG: OV=773 Condition=Condition 1 05:40 PM 5Fr SRC catheter inserted over the wire [id number] 05:40 PM Coronary Dominance: right tsoumm 05:41 PM NIBP STAT measurement started. 05:42 PM RCA angiography performed in multiple views. mm 05:42 PM HR=95 bpm, RSSC=617/61 mmhg, SpO2=99.0 %, Resp=14 B/min 05:42 PM Recorded Pressure: Ao, HR=98, Condition=Condition 1 (Aorta) Ao 90/72/82 05:43 PM Catheter removed 05:44 PM Time: 17:29 Patient comfortable and pain free: Yes 05:44 PM Time: 17:29LOC: 4 = Oriented but drowsy tsoumm 05:45 PM Lesion found in Distal RCA. Pre Stenosis: 100 Pre CRIS Flow: 0: No Flow/No perfusion tsoumm 05:45 PM Right Coronary, Right Posterior Descending Arteries with Right Posterolateral and Acute Marginal branches with 100 % stenosis. If graft is supplying this area, 0 % stenosis tsoumm 05:46 PM Time: 17:45 Aggrastat Bolus: 37.5 ml Intravenous Given by Hector Antoine RN Monreal pump [facility] 05:47 PM Time: 17:46 Aggrastat 12.5mg/250ml 13.5 ml/hr Intravenous Given by Hector Antoine RN Monreal pump tsoummshreyas 05:47 PM Procedure completed at 17:47 02/02/2019 tsoummers 05:47 PM HR=96 bpm, ERPB=097/62 mmhg, RfF0=351.0 %, Resp=26 B/min 05:47 PM Did you address CRIS flow and Dominance? YesCoronary Dominance: right tsoummshreyas 05:48 PM Sign out completed: Radiation Dose 129.17 mGy, 18.7 Gy/cm2 Fluoro Time: 4.8 Isovue 370 - 200ml contrast 68 ml given by Eros Valiente MD. Complications: None. 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 Sedation minutes 30. Cardiac Rehab Consult needed: Yes. Confirmed administered medications: Yes tsoummers 05:49 PM Isovue 370 - 200ml,1 Bottle(s) used. tsoummers 05:50 PM Arterial sheath pulled, Mynx closure device used and was Successful S/N. tsoummers 05:50 PM Estimated Blood Loss: less than 20cc tsoummers 05:50 PM Post ECG NSR tsoummers 05:50 PM Post Blood Pressure 101/62 tsoummers 05:50 PM 17:50 Post Pulses Bilateral DP & PT 2+ tsoummers 05:50 PM Information taught Cardiac Cath and Mynx tsoummers 05:50 PM Education needs Procedure, Plan of Care, and Responsibilities of Patient in Care tsoummers 05:50 PM Learning barriers :None tsoummers 05:50 PM Education evaluation Able to repeat information tsoummers 05:50 PM Education Methods Verbal tsoummers 05:50 PM Site status No bleeding/hematoma - Rt Groin as reported by Lenore Bishop RT (R) at 17:50 tsoummers 05:50 PM Opsite applied tsoummers 05:50 PM Plavix, Effient or Brilinta given Yes tsoummers 05:51 PM Delay to floor No tsoummers 05:51 PM Family placed in consult room. tsoummers 05:51 PM Time: 17:51 Brilinta 180 mg Orally Given by Hector Antoine RN [place] 05:52 PM JS=507 bpm, NIBP=98/65 mmhg, WwM7=299.0 %, Resp=18 B/min 05:54 PM Vitals capture stopped. 05:56 PM Report given to Gabriella LOZADA Pt taken to Room #48. 17:56 elizabeth 05:56 PM Patient out of room: 17:56 elizabeth Complications Complication None Hemodynamics Pressures Site Systolic/A Wave Diastolic/V Wave Mean AO 78 69 73 AO 66 49 57 AO 77 60 68 LV 117 -4 16 LV 115 -6 15 AO 105 60 77 AO 90 72 82 Post Procedure Information Blood Pressure: 101/62 mmHg Rhythm: NSR Post procedural instructions were given Closure Device Time Device Success/Fail 02/02/2019 5:50:00 PM MynxGrip Successful Site Checks Time Location Status Staff Sheath In? Note 05:50 PM Rt Groin No bleeding/hematoma Lenore Bishop RT (R) Pulses Time Site Pre-Procedure Post-Procedure Note 02/02/2019 8:42:00 AM Bilateral radial 2+ 02/02/2019 8:43:00 AM Bilateral DP & PT 2+ 5:50:00 PM Bilateral DP & PT 2+ Updated by Wanda Amaro RN on 02/02/2019 5:57:15 PM electronically signed on 02/02/2019 5:57:38 PM with status of Final
--- NOTE | 2019-02-02 20:16 | Electrocardiograph Report ---
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
[2019-02-02] MEDS: *HR* Ticagrelor 90 MG TABLET PO SCH (21:22)
[2019-02-03] MEDS: clonazePAM 0.5 MG TABLET PO PRN (08:34)
[2019-02-03] MEDS: Nicotine 14 MG PATCH.TD24 TD SCH (08:34)
[2019-02-03] MEDS: *HR* Ticagrelor 90 MG TABLET PO SCH (08:34)
[2019-02-03] MEDS: Aspirin 81 MG TAB.CHEW PO SCH (08:37)
[2019-02-03] MEDS: Heparin 25,000 UNIT/250 ML D5W 25,000 UNIT/250 ML IV.SOLN IVC SCH (08:37)
--- NOTE | 2019-02-03 10:26 | Discharge Summary ---
- NOTES TO OUTPATIENT PROVIDER Notes to Outpatient Provider: f/u with PCP in one week. f/u with Cardiology in 2 weeks. Please quit smoking. Please start taking ASA, Brilinta, Metoprolol and Lipitor Orders not resulted at time of discharge: Pending orders 02/02/19 17:52 ECG 12 lead ECG [ECG] Routine ECG 12 lead ECG [ECG] Stat 02/03/19 07:00 ECG 12 lead ECG [ECG] Routine Date of Encounter: 02/03/19 Time of Encounter: 10:24 - Discharge Diagnosis (1) NSTEMI (non-ST elevated myocardial infarction) Priority: Primary Status: Acute (2) CAD (coronary artery disease) Priority: Secondary Status: Acute Qualifiers: Coronary Disease-Associated Artery/Lesion type: [place] artery [place] vs. transplanted heart: [place] heart Associated angina: without angina Qualified Code(s): I25.10 - Atherosclerotic heart disease of [place] coronary artery without angina pectoris (3) Sinus tachycardia Priority: Primary Status: Acute (4) Narcotic dependence, in remission Priority: Secondary Status: Acute (5) DVT prophylaxis Priority: Secondary Status: Acute (6) Tobacco dependence Priority: Secondary Status: Chronic Hospital course: Mr. Hope is a 28 year old male with a known past medical history of former narcotic dependence, used to be on suboxone therapy up until Aug 2018, now he presented to emergency department with chief complaint of palpitations, anxiety attack and left hand numbness. He did mention as if he was about to pass out. patient stated that 3 months ago he had a similar episode after he consumed several servings of 5 hours drinks in the same day. He was evaluated and [facility] and wore a Holter monitor for 3 days had an echocardiogram and a tilt table test that was all normal. Patient did mention he still drinking 5 hour energy drinks, but cut down the quantity now he was admitted in the hospital and placed on director of cardiac rehabilitation. His serial troponin went up and peaked at 2.73. So pt was continued on heparin gtt. He denied any CP. His 2 D Echo showed preserved LVEF and No Septal abnormalities / WMA. Pt was evaluated by Supervisor [place] who did [facility] y/d showed severe one vessel disease. He did have 100 % stenosis in the extreme tip of the distal RCA. Small calibre short distributionvessel not amenable to PCI, so Card recommended medical management plus dual antiplatelet therapy x 1 month. Will d/c him home with PO Metoprolol, ASA, Brilinta, and Lipitor - Time Spent with Patient Total time spent providing and/or coordinating discharge services: - Discharge Medications Prescriptions: New Aspirin 81 mg PO DAILY #30 tab.chew Ticagrelor [Brilinta] 90 mg PO BID #60 tablet clonazePAM [Klonopin] 0.5 mg PO BID PRN 10 Days #20 tablet PRN Reason: Anxiety Atorvastatin [Lipitor] 40 mg PO HS #30 tablet Metoprolol [Lopressor] 12.5 mg PO BID #30 tablet Nicotine Patch [Nicoderm] 14 mg TD DAILY #30 patch.td24 Home Medications: Aspirin 81 mg PO DAILY #30 tab.chew 02/03/19 [Rx] Atorvastatin [Lipitor] 40 mg PO HS #30 tablet 02/03/19 [Rx] Metoprolol [Lopressor] 12.5 mg PO BID #30 tablet 02/03/19 [Rx] Nicotine Patch [Nicoderm] 14 mg TD DAILY #30 patch.td24 02/03/19 [Rx] Ticagrelor [Brilinta] 90 mg PO BID #60 tablet 02/03/19 [Rx] clonazePAM [Klonopin] 0.5 mg PO BID PRN 10 Days #20 tablet 02/03/19 [Rx] Allergies/Adverse Reactions: Allergy/AdvReac Type Severity Reaction Status Date / Time No Known Allergies Allergy Verified 01/29/19 20:11 Date of admission: 01/31/19 15:45 Primary care physician: PCP NONE Consults: 01/30/19 09:38 Consult to Cardiology [CONS] Routine Comment: Consulting Provider: Cardiology Deena Reason for Consult: NSTEMi Time Notified: 09:38 Call Completed: Yes 02/02/19 17:52 Consult to Cardiac Rehabilitation-Phase1 [CONS] Routine Comment: Reason for Consult: AMI Call Completed: Yes Consult to Nurse Navigator [CONS] Routine Comment: - Constitutional Vitals: Temp Pulse Resp BP Pulse Ox 97.9 F 83 16 108/75 99 02/03/19 06:33 02/03/19 06:33 02/03/19 06:33 02/03/19 06:33 02/03/19 06:33 General appearance: Present: A&O X 3, no acute distress, answers questions appropriately Exam: Gen: Alert, awake, Oriented to time,place and person Chest: Diminished breath sounds B/L, No wheezing, No crackles, No rales Heart: S1S2+ RRR No murmurs Abd: Soft, NT, BS +, No organomegaly Ext: No edema, pulses are palpable, No calf tenderness Neuro : No acute focal neuro deficits noticed Skin: No rash. - Patient Status Disposition: Home, Self-Care Condition: Good Overall status at discharge: patient is back to baseline - Discharge Instructions Follow Up With: NONE,PCP [Primary Care Provider] - Eros Valiente [Partnered Physician] - - Diet and Activity Activity: increase activity as tolerated Diet: low salt diet
--- NOTE | 2019-02-03 10:33 | Cardiology Progress Note ---
Date of Encounter: 02/03/19 Time of Encounter: 10:00 Assessment and Plan (1) Elevated troponin Current Visit: Yes Status: Acute Troponin continues to uptrend, 2.73. Remains chest pain free. No ischemic ECG changes. Unclear significance. Episode of ST yesterday afternoon around 5PM, patient reports "panic attack" TTE Shows preserved EF and no WMA. Pt reported left arm pain prior to admission. Cardiac risk factors include tobacco abuse, and paternal family hx. [facility] 02/02/19: 100% stenosis of the dRCA--small vessel, medical therapy recommended. Recommend DAPT (asa + brilinta) for 1 month. Continue statin and BB. Cardiac rehab. Risk factor modification recommended. Pt. counseled on importance of smoking cessation, he is interested in NRT--discussed with primary service. Will coordinate outpatient follow-up. (2) Tachycardia Current Visit: Yes Status: Acute Patient seen to have sinus tachycardia with HR up to 145 bpm. May be secondary to energy drinks. H/o tachycardia in the past. Patient should refrain from using energy drinks. Agree with IV hydration. Discussion w patient/family: The assessment and plan as outlined above was discussed with the patient and/or family members who expressed understanding and agreement. All questions were answered. Thank you for involving us in the care of your patient. Please call with any questions. The patient will be discussed and reviewed with Dr. Goldman; changes to be made accordingly. Subjective Principal diagnosis: NSTEMI Interval history: seen and examined. Discussed results of C. No new complaints overnight. Objective Vital Signs, Last 4 Hours Temp Pulse Resp BP Pulse Ox 02/03/19 06:33 97.9 F 83 16 108/75 99 General: Conversant, No Apparent Distress HEENT: Atraumatic, Normocephaly, Mucus Membranes Moist Neck: No JVD, Normal carotid pulses Cardiac: Reg Rate and Rhythm, Normal S1 and S2, No Murmur Lungs: Normal Breath Sounds, No Wheeze, Rales, Rhonchi Neuro: Alert and responsive, No focal deficits noted Abdomen: Soft, Non-Tender Skin: No rashes noted on visualized skin Musculoskeletal: No Chest Wall Tenderness Extremities: No Clubbing, No Cyanosis, No Edema, Normal Pulses Results 02/02/19 03:03 02/02/19 03:03 Active Medications Acetaminophen (Tylenol) 650 mg PO Q6HR PRN PRN Reason: Mild Pain/Fever Stop: 07/31/19 18:27 Last Admin: 02/03/19 06:38 Dose: 650 mg Documented by: Hydrocodone Bitart/Acetaminophen ([place] 5-325 Mg) 1 tab PO Q6HR PRN PRN Reason: Moderate Pain Stop: 07/31/19 18:27 Aspirin (Aspirin) 81 mg PO DAILY [facility] Stop: 08/02/19 12:16 Last Admin: 02/03/19 08:37 Dose: 81 mg Documented by: Atorvastatin Calcium (Lipitor) 40 mg PO HS [facility] Stop: 08/02/19 21:01 Last Admin: 02/02/19 21:22 Dose: 40 mg Documented by: Calcium Carbonate (Tums) 1,000 mg PO Q4HR PRN; Protocol PRN Reason: Heartburn Stop: 08/01/19 00:32 Last Admin: 02/01/19 10:34 Dose: 1,000 mg Documented by: Clonazepam (Klonopin) 0.5 mg PO BID PRN PRN Reason: Anxiety Last Admin: 02/03/19 08:34 Dose: 0.5 mg Documented by: Heparin Sodium (Porcine) (Heparin) 4,000 unit IVP Q6HR PRN PRN Reason: SEE COMMENTS Stop: 08/01/19 04:26 Heparin Sodium (Porcine) (Heparin) 2,000 unit IVP Q6H PRN PRN Reason: SEE COMMENTS Stop: 08/01/19 04:26 Heparin Sodium/Dextrose (Heparin 25,000 Unit/250 Ml D5w) 25,000 unit in 250 mls @ 9.36 mls/hr IVC .Q24H FE; Protocol Stop: 08/01/19 04:31 Last Admin: 02/03/19 08:37 Dose: Not Given Documented by: Lorazepam (Ativan) 1 mg PO TID PRN PRN Reason: Anxiety Stop: 08/04/19 13:27 Last Admin: 02/02/19 13:47 Dose: 1 mg Documented by: Metoprolol Tartrate (Lopressor) 12.5 mg PO BID [facility] Stop: 08/02/19 21:01 Last Admin: 02/03/19 08:37 Dose: 12.5 mg Documented by: Naloxone HCl (Narcan) 0.4 mg IVP Q2MPRN PRN PRN Reason: SEE COMMENTS Stop: 07/31/19 18:27 Nicotine (Nicoderm) 14 mg TD DAILY [facility]; Protocol Stop: 07/31/19 17:31 Last Admin: 02/03/19 08:34 Dose: 14 mg Documented by: Ondansetron HCl (Zofran) 4 mg IVP Q8HR PRN PRN Reason: Nausea And Vomiting Stop: 07/31/19 18:27 Ticagrelor (Brilinta) 90 mg PO BID [facility] Stop: 08/04/19 21:01 Last Admin: 02/03/19 08:34 Dose: 90 mg Documented by: - Imaging and Cardiology Echo: report reviewed Cardiac cath: report reviewed - EKG Interpretation EKG results cardiology: personally reviewed Consult Discharge Plan - Plan Referrals: NONE,PCP [Primary Care Provider] - Prescriptions: Aspirin 81 mg PO DAILY #30 tab.chew Ticagrelor [Brilinta] 90 mg PO BID #60 tablet clonazePAM [Klonopin] 0.5 mg PO BID PRN 10 Days #20 tablet PRN Reason: Anxiety Atorvastatin [Lipitor] 40 mg PO HS #30 tablet Metoprolol [Lopressor] 12.5 mg PO BID #30 tablet Nicotine Patch [Nicoderm] 14 mg TD DAILY #30 patch.td24
[2019-02-03 10:39] VITALS: BP 107/78
== END 2019-02-03 13:28 | disposition home or self-care (01) | DRG 190 ==
LOC: 3BNU 11:22 → EMEROOARM 11:22 → SUATTDRO 14:53 → 3BNU 16:29 → SUATTDRO 01-31 15:45
PROVIDERS: ADMIT Internal Medicine Nephrology; ATTEND Family Medicine

== ENCOUNTER 2020-01-31 13:32 | Observation (INO) ==
[2020-01-31] MEDS ORDERED: 0.9 % Sodium Chloride 1,000 ML IVC ONE ×2 (13:36→13:55)
[2020-01-31] MEDS ORDERED: Pantoprazole 40 MG VIAL IVP ONE (13:54)
[2020-01-31] MEDS ORDERED: Ondansetron 4 MG/2 ML VIAL IVP ONE (13:55)
[2020-01-31 14:07] LABS: Basophils % 0.1 %; Hematocrit 47.9 % (37.5-50.1); Immature Granulocytes % 0.2 % (0-4); Lymphocytes # 1.4 K/mcL (0.6-4.6); Lymphocytes % 11.3 %; Mean Corpuscular HGB Conc 33.4 g/dL (31.6-35.5); Mean Corpuscular Hemoglobin 28.8 pg (28.0-33.3); Mean Corpuscular Volume 86.3 fL (83.0-100.0); Mean Platelet Volume 10.1 fL (9.4-12.4); Monocytes # 1.1 K/mcL (0.0-1.3); Neutrophils # 9.9 K/mcL (1.6-8.9); Platelet Count 255 K/mcL (140-400); Red Blood Count 5.55 M/mcL (4.19-5.50); Red Cell Distribution Width 14.5 % (11.5-14.5); Segmented Neutrophils % 79.4 %; White Blood Count 12.5 K/mcL (4.3-11.1)
[2020-01-31] MEDS ORDERED: Isovue-370 500 ML BOTTLE IVP ONE (14:11)
[2020-01-31 14:21] LABS: Prothrombin Time 11.5 Seconds (9.4-12.1)
[2020-01-31 14:25] LABS: Calcium 12.5 mg/dL (8.6-10.3); Potassium 3.3 mEq/L (3.5-5.1)
[2020-01-31 15:19] LABS: Amphetamine Screen,Urine Negative ng/mL (Cutoff=1000); Barbiturate Screen,Urine Negative ng/mL (Cutoff=200); Benzodiazepines Screen,Urine Positive ng/mL (Cutoff=200); Cannabinoid Screen,Urine Positive ng/mL (Cutoff = 50); Cocaine Screen,Urine Negative ng/mL (Cutoff= 300); Opiate Screen,Urine Negative ng/mL (Cutoff=300); Phencyclidine Screen,Urine Negative ng/mL (Cutoff=25)
[2020-01-31] MEDS ORDERED: Potassium Chloride 40 MEQ, Lidocaine 1% 2 ML in 0.9 % Sodium Chloride 500 ML IVPB ONE (18:29)
[2020-01-31] MEDS ORDERED: Naloxone 0.4 MG/ML INJ IVP PRN (18:36)
[2020-01-31] MEDS: Nicotine 14 MG PATCH.TD24 TD SCH (21:26)
[2020-01-31] MEDS: 0.9 % Sodium Chloride 1,000 ML IVC SCH (21:27)
[2020-02-01 05:26] LABS: Alanine Aminotransferase 11 Units/L (7-52); Albumin 3.5 g/dL (3.5-5.7); Albumin/Globulin Ratio 1.8 (1.1-2.2); Alkaline Phosphatase 49 Units/L (34-104); Aspartate Amino Transferase 19 Units/L (13-39); BUN/Creatinine Ratio 11 (6-26); Bilirubin,Total 0.7 mg/dL (0.3-1.0); Blood Urea Nitrogen 17 mg/dL (6-20); Calcium 8.8 mg/dL (8.6-10.3); Carbon Dioxide 28 mEq/L (23-29); Chloride 106 mEq/L (98-107); Glucose 91 mg/dL (70-105); Osmolality,Calculated 287 (280-300); Potassium 3.5 mEq/L (3.5-5.1); Sodium 138 mEq/L (136-145); Total Protein 5.5 g/dL (6.4-8.9); eGFR For African Americans > 60 (> 60); eGFR For Non-African Americans 54 (> 60)
[2020-02-01] MEDS: Pantoprazole 40 MG VIAL IVP SCH ×2 (05:41→15:52)
[2020-02-01 07:55] LABS: Basophils % 0.3 %; Eosinophils # 0.1 K/mcL (0.0-0.6); Eosinophils % 0.9 %; Hematocrit 39.8 % (37.5-50.1); Hemoglobin 13.3 g/dL (12.9-16.9); Immature Granulocytes % 0.3 % (0-4); Lymphocytes # 1.6 K/mcL (0.6-4.6); Lymphocytes % 23.6 %; Mean Corpuscular HGB Conc 33.4 g/dL (31.6-35.5); Mean Corpuscular Hemoglobin 29.4 pg (28.0-33.3); Mean Corpuscular Volume 88.1 fL (83.0-100.0); Mean Platelet Volume 9.8 fL (9.4-12.4); Monocytes # 0.7 K/mcL (0.0-1.3); Neutrophils # 4.2 K/mcL (1.6-8.9); Platelet Count 169 K/mcL (140-400); Red Blood Count 4.52 M/mcL (4.19-5.50); Red Cell Distribution Width 14.5 % (11.5-14.5); Segmented Neutrophils % 63.9 %; White Blood Count 6.6 K/mcL (4.3-11.1)
[2020-02-01] MEDS: 0.9 % Sodium Chloride 1,000 ML IVC SCH ×3 (09:38→22:23)
[2020-02-01] MEDS ORDERED: 0.9 % Sodium Chloride 500 ML IVC SCH ×3 (13:30→13:45)
[2020-02-01] MEDS ORDERED: Lidocaine -MPF 4% 5 ML AMPUL ONE (14:16)
[2020-02-01] MEDS ORDERED: Ondansetron 4 MG/2 ML VIAL ONE (14:16)
[2020-02-01] MEDS ORDERED: *HR* Propofol 200 MG/20 ML VIAL IVP ONE (14:16)
[2020-02-01] MEDS ORDERED: Dexamethasone 4 MG/ML VIAL ONE (14:16)
[2020-02-01] MEDS: *HR* Ticagrelor 90 MG TABLET PO SCH (22:23)
[2020-02-01] MEDS: Nicotine 14 MG PATCH.TD24 TD SCH (22:23)
[2020-02-02 02:05] LABS: Basophils % 0.1 %; Immature Granulocytes % 0.7 % (0-4); Lymphocytes # 0.6 K/mcL (0.6-4.6); Lymphocytes % 7.5 %; Mean Corpuscular HGB Conc 32.3 g/dL (31.6-35.5); Mean Corpuscular Hemoglobin 28.3 pg (28.0-33.3); Mean Corpuscular Volume 87.4 fL (83.0-100.0); Mean Platelet Volume 10.1 fL (9.4-12.4); Monocytes # 0.1 K/mcL (0.0-1.3); Monocytes % 1.3 %; Neutrophils # 6.7 K/mcL (1.6-8.9); Platelet Count 201 K/mcL (140-400); Red Blood Count 4.92 M/mcL (4.19-5.50); Red Cell Distribution Width 14.4 % (11.5-14.5); Segmented Neutrophils % 90.4 %; White Blood Count 7.5 K/mcL (4.3-11.1)
[2020-02-02 02:11] LABS: Hemoglobin 13.9 g/dL (12.9-16.9)
[2020-02-02 02:26] LABS: BUN/Creatinine Ratio 12 (6-26); Blood Urea Nitrogen 16 mg/dL (6-20); Calcium 8.7 mg/dL (8.6-10.3); Carbon Dioxide 23 mEq/L (23-29); Chloride 105 mEq/L (98-107); Glucose 117 mg/dL (70-105); Magnesium 1.8 mg/dL (1.6-2.6); Osmolality,Calculated 282 (280-300); Phosphorous 1.9 mg/dL (2.7-4.5); Potassium 4.1 mEq/L (3.5-5.1); Sodium 135 mEq/L (136-145); eGFR For African Americans > 60 (> 60); eGFR For Non-African Americans > 60 (> 60)
[2020-02-02] MEDS: Pantoprazole 40 MG VIAL IVP SCH (06:37)
[2020-02-02 07:08] VITALS: BP 101/62
[2020-02-02] MEDS ORDERED: Aspirin Enteric Coated 81 MG Tablet PO SCH (09:00)
[2020-02-02] MEDS: *HR* Ticagrelor 90 MG TABLET PO SCH (09:06)
[2020-02-02] MEDS: 0.9 % Sodium Chloride 1,000 ML IVC SCH (09:07)
== END 2020-02-02 11:20 | disposition home or self-care (01) ==
LOC: 3BNU 13:32 → EMEROOARM 13:32 → SUATTDRO 17:40 → 3BNU 18:32
PROVIDERS: ADMIT Student in an Organized Health Care Education/Training Program; ATTEND Internal Medicine

== ENCOUNTER 2020-12-13 23:24 | Observation (INO) ==
[2020-12-14 00:45] LABS: Basophils % 0.2 %; Eosinophils % 0.5 %; Hematocrit 45.9 % (37.5-50.1); Hemoglobin 15.3 g/dL (12.9-16.9); Immature Granulocytes % 0.3 % (0-4); Lymphocytes # 1.4 K/mcL (0.6-4.6); Lymphocytes % 16.2 %; Mean Corpuscular HGB Conc 33.3 g/dL (31.6-35.5); Mean Corpuscular Hemoglobin 30.1 pg (28.0-33.3); Mean Corpuscular Volume 90.2 fL (83.0-100.0); Monocytes # 0.8 K/mcL (0.0-1.3); Monocytes % 9.6 %; Neutrophils # 6.3 K/mcL (1.6-8.9); Platelet Count 205 K/mcL (140-400); Red Blood Count 5.09 M/mcL (4.19-5.50); Red Cell Distribution Width 14.1 % (11.5-14.5); Segmented Neutrophils % 73.2 %; White Blood Count 8.6 K/mcL (4.3-11.1)
[2020-12-14 00:52] LABS: Alanine Aminotransferase 60 Units/L (7-52); Albumin 4.5 g/dL (3.5-5.7); Albumin/Globulin Ratio 1.7 (1.1-2.2); Alkaline Phosphatase 76 Units/L (34-104); Aspartate Amino Transferase 38 Units/L (13-39); BUN/Creatinine Ratio 10 (6-26); Bilirubin,Total 0.4 mg/dL (0.3-1.0); Blood Urea Nitrogen 12 mg/dL (6-20); Calcium 8.9 mg/dL (8.6-10.3); Carbon Dioxide 28 mEq/L (23-29); Chloride 104 mEq/L (98-107); Globulin 2.6 g/dL (2.4-3.5); Glucose 98 mg/dL (70-105); Osmolality,Calculated 292 (280-300); Potassium 3.5 mEq/L (3.5-5.1); Sodium 141 mEq/L (136-145); Total Protein 7.1 g/dL (6.4-8.9); eGFR For African Americans > 60 (> 60); eGFR For Non-African Americans > 60 (> 60)
[2020-12-14 01:17] LABS: Bilirubin,Urine Negative (Negative); Blood,Urine Negative (Negative); Clarity,Urine Clear (Clear); Color,Urine Light-Yellow (Yellow); Glucose,Urine (UA) Normal (Normal); Ketones,Urine Negative (Negative); Leukocyte Esterase,Urine Negative (Negative); Mucus,Urine Few per lpf (None-Few); Nitrite,Urine Negative (Negative); Protein,Urine 30 mg/dL (Neg-Trace); RBC,Urine 0-3 per hpf (0-3); Specific Gravity,Urine > 1.030 (1.010-1.025); Urobilinogen,Urine Normal (Normal); WBC,Urine 0-3 per hpf (0-3)
[2020-12-14] MEDS ORDERED: Ibuprofen 400 MG TABLET PO ONE (01:18)
[2020-12-14] MEDS ORDERED: Ondansetron ODT 4 MG TAB.RAPDIS SL ONE (01:18)
[2020-12-14] MEDS ORDERED: clonazePAM 0.5 MG TABLET PO ONE (01:30)
[2020-12-14 01:32] LABS: Creatine Kinase 94 Units/L (30-223)
[2020-12-14 01:56] LABS: Troponin I 0.07 ng/mL (< 0.04)
[2020-12-14] MEDS ORDERED: Aspirin 81 MG TAB.CHEW PO ONE (01:59)
[2020-12-14 02:34] LABS: Amphetamine Screen,Urine Negative ng/mL (Cutoff=1000); Barbiturate Screen,Urine Negative ng/mL (Cutoff=200); Benzodiazepines Screen,Urine Negative ng/mL (Cutoff=200); Cannabinoid Screen,Urine Negative ng/mL (Cutoff = 50); Cocaine Screen,Urine Negative ng/mL (Cutoff= 300); Opiate Screen,Urine Negative ng/mL (Cutoff=300); Phencyclidine Screen,Urine Negative ng/mL (Cutoff=25)
[2020-12-14 02:59] LABS: Influenza A PCR Negative (Negative); Influenza B PCR Negative (Negative); Resp. Syncytial Virus PCR Negative (Negative)
[2020-12-14 03:01] LABS: SARS-CoV-2 by PCR (In House) Negative (Negative)
[2020-12-14] MEDS ORDERED: *HR* LORazepam 2 MG/ML VIAL IVP PRN ×3 (03:25)
[2020-12-14] MEDS ORDERED: Ondansetron 4 MG/2 ML VIAL IVP PRN (03:29)
[2020-12-14] MEDS ORDERED: Naloxone 0.4 MG/ML INJ IVP PRN (03:29)
[2020-12-14] MEDS ORDERED: Perflutren Lipid Microsphere 1.3 ML in 0.9 % Sodium Chloride 8.7 ML IVP PRN (04:55)
[2020-12-14] MEDS: *HR* Heparin 5,000 UNIT/ML VIAL SQ SCH ×2 (06:00→15:22)
[2020-12-14] MEDS ORDERED: clonazePAM 1 MG TABLET PO PRN (08:00)
[2020-12-14] MEDS ORDERED: 0.9 % Sodium Chloride 1,000 ML IVC SCH (08:45)
[2020-12-14] MEDS ORDERED: Aspirin Enteric Coated 81 MG Tablet PO SCH (09:00)
[2020-12-14] MEDS ORDERED: Thiamine (B-1) 100 MG TABLET PO SCH (09:00)
[2020-12-14] MEDS ORDERED: Folic Acid 1 MG TABLET PO SCH (09:00)
[2020-12-14] MEDS ORDERED: Vitamin B Complex/Vit C/Vit E 1 EACH TABLET PO SCH (09:00)
[2020-12-14 16:09] VITALS: BP 103/67
== END 2020-12-14 19:24 | disposition left against medical advice (07) ==
LOC: EMEROOARM 23:24 → 3BNU 23:24 → SUATTDRO 12-14 03:14 → 3BNU 12-14 03:43
PROVIDERS: ADMIT Student in an Organized Health Care Education/Training Program; ATTEND Internal Medicine